=== PATIENT | male | born 1980 | race Caucasian/White ===

== ENCOUNTER 2018-06-17 06:40 | Emergency (ER) | payer MEDICAID ==
[~2018-06-17] VITALS: Ht 188 cm; Wt 80.0 kg
[2018-06-17 06:44] VITALS: BP 106/78
[2018-06-17] MEDS ORDERED: MODA200T27 PO (07:11)
[2018-06-17] MEDS ORDERED: CLON1TAB PO (07:11)
[2018-06-17] MEDS ORDERED: VENL150C PO (07:11)
== END 2018-06-17 08:13 | disposition home or self-care (01) ==
LOC: ED 08:07
DX: F41.9 Anxiety disorder, unspecified (principal)
CPT/HCPCS: 99283

== ENCOUNTER 2018-06-20 10:36 | Emergency (ER) | payer MEDICAID ==
[~2018-06-20] VITALS: Ht 188 cm; Wt 82.0 kg
[~2018-06-20 10:36] MED LIST: CLON1TAB PO; MODA200T27 PO; VENL150C PO
[2018-06-20 10:39] VITALS: BP 119/83
== END 2018-06-20 11:31 ==
LOC: ED 11:25
DX: F33.9 Major depressive disorder, recurrent, unspecified (principal); Z76.0 Encounter for issue of repeat prescription
CPT/HCPCS: 99283

== ENCOUNTER 2018-08-09 04:29 | Emergency (ER) | payer MEDICAID ==
[~2018-08-09] VITALS: Ht 188 cm; Wt 80.7 kg
[2018-08-09 06:02] VITALS: BP 118/74
== END 2018-08-09 06:04 | disposition home or self-care (01) ==
LOC: ED 05:45
DX: F33.0 Major depressive disorder, recurrent, mild (principal); F41.1 Generalized anxiety disorder; Z76.0 Encounter for issue of repeat prescription
CPT/HCPCS: 99283

== ENCOUNTER 2018-08-31 13:31 | Emergency (ER) | payer MEDICAID ==
[~2018-08-31] VITALS: Ht 190.5 cm; Wt 82.3 kg
[2018-08-31 13:41] VITALS: BP 123/67
== END 2018-08-31 14:19 | disposition home or self-care (01) ==
LOC: ED 14:03
DX: F32.9 Major depressive disorder, single episode, unspecified (principal); F17.200 Nicotine dependence, unspecified, uncomplicated
CPT/HCPCS: 99283

== ENCOUNTER 2018-10-28 16:27 | Emergency (ER) | payer MEDICAID ==
[~2018-10-28] VITALS: Ht 188 cm; Wt 89.0 kg
[2018-10-28 16:32] VITALS: BP 123/75
== END 2018-10-28 17:43 | disposition home or self-care (01) ==
LOC: ED 17:12
DX: F41.1 Generalized anxiety disorder (principal); F32.9 Major depressive disorder, single episode, unspecified; Z76.0 Encounter for issue of repeat prescription
CPT/HCPCS: 99283

== ENCOUNTER 2018-11-21 18:06 | Emergency (ER) | payer MEDICAID ==
[~2018-11-21] VITALS: Ht 188 cm; Wt 90.3 kg
[2018-11-21 18:17] VITALS: BP 123/83
== END 2018-11-21 19:15 | disposition home or self-care (01) ==
LOC: ED 19:00
DX: F41.9 Anxiety disorder, unspecified (principal); Z76.0 Encounter for issue of repeat prescription
CPT/HCPCS: 99283